=== PATIENT | female | born 1990 | race Caucasian/White ===

== ENCOUNTER → 2023-01-14 | Outpatient (CLI) | payer SELFPAY ==
--- NOTE | 2023-01-14 10:05 | ECHOD_ITS ---
Reason For Study: CHEST PAIN Procedure This was a 2D Doppler, Color Flow transthoracic echocardiogram. Exam performed in department. Left Ventricle Normal LV size. Left ventricular systolic function is normal. The estimated ejection fraction is 60 %. Normal diastololic function. No regional wall motion abnormalities noted. Right Ventricle Normal RV size. Normal systolic function. Atria The left and right atria are normal. Mitral Valve The mitral valve is structurally normal. No prolapse or stenosis seen. Trivial mitral valve insufficiency. Tricuspid Valve Normal tricuspid valve. Trivial tricuspid valve insufficiency. Unable to estimate RV systolic pressure due to insufficient tricuspid regurgitant envelope. Aortic Valve Trisinus/trileaflet aortic valve. There is no aortic stenosis. No aortic valve insufficiency. Pulmonic Valve Normal pulmonic valve. Trivial pulmonic valve insufficiency. Great Vessels Normal aortic root. Pericardium/Pleural No pericardial effusion. MMode/2D Measurements & Calculations LVIDd: 4.4 cm IVSd: 0.74 cm Ao root diam: 2.7 cm LVIDs: 3.2 cm LVPWd: 0.89 cm RVDd: 3.2 cm FS: 27.0 % LAV(MOD-bp): 31.4 ml LVAd ap4: 28.0 cm2 LVAd ap2: 27.5 cm2 LAV(MOD-bp) Indexed: 18.6 ml/m2 LVLd ap4: 7.4 cm LVLd ap2: 7.7 cm LAV(MOD-sp2): 27.1 ml EDV(MOD-sp4): 86.5 ml EDV(MOD-sp2): 78.5 ml LAV(MOD-sp4): 34.4 ml EDV(sp4-el): 89.9 ml EDV(sp2-el): 83.0 ml LVAs ap4: 15.9 cm2 LVAs ap2: 17.0 cm2 LVLs ap4: 6.1 cm LVLs ap2: 6.7 cm ESV(MOD-sp4): 34.4 ml ESV(MOD-sp2): 35.5 ml ESV(sp4-el): 35.2 ml ESV(sp2-el): 36.5 ml EF(MOD-sp4): 60.2 % EF(MOD-sp2): 54.8 % EF(sp4-el): 60.9 % SV(MOD-sp4): 52.0 ml SV(MOD-sp2): 43.0 ml SV(sp4-el): 54.7 ml LA dimension(2D): 2.8 cm LA A4 area: 14.3 cm2 RA A4 area: 8.6 cm2 TAPSE: 2.4 cm Time Measurements MV dec time: 0.36 sec Doppler Measurements & Calculations MV E max kana: 59.9 cm/sec Lat Peak E' Kana: 20.4 cm/sec Med Peak E' Kana: 16.4 cm/sec MV A max kana: 45.6 cm/sec E/E' lat: 2.9 E/E' med: 3.7 MV E/A: 1.3 MV V2 max: 68.7 cm/sec MV P1/2t max kana: 70.5 cm/sec LV V1 max: 101.1 cm/sec MV max P.9 mmHg MV P1/2t: 109.8 msec LV V1 max P.1 mmHg MV V2 mean: 45.7 cm/sec MV dec slope: 188.1 cm/sec2 LV V1 mean P.5 mmHg MV mean P.91 mmHg LV V1 mean: 74.7 cm/sec MV V2 VTI: 20.3 cm MVA(P1/2t): 2.0 cm2 LV V1 VTI: 21.8 cm PA V2 max: 81.6 cm/sec ECHO/Echo Complete Interpretation Summary The estimated ejection fraction is 60 %. Ordering Physician: Nesha Becerra Referring Physician: Nesha Becerra Performed By: Ese Araya RDCS and Student
== END | disposition home or self-care (01) ==
LOC: CVS 10:03
PROVIDERS: PCP Nurse Practitioner Family; Referring Provider Nurse Practitioner Family; Visit Provider Nurse Practitioner Family
DX: R07.9 Chest pain, unspecified (principal)
CPT/HCPCS: 93306

== ENCOUNTER → 2023-04-08 | Outpatient (REF) | payer SELFPAY | END | disposition home or self-care (01) | LOC: BIMLAB 10:33 | PROVIDERS: PCP Nurse Practitioner Family; Visit Provider Nurse Practitioner Family | DX: Z00.00 Encounter for general adult medical examination without abnormal findings (principal) | CPT/HCPCS: 36415 ==